=== PATIENT | female | born 1955 | race Caucasian/White ===

== ENCOUNTER 2020-05-05 20:25 | Inpatient (IN) ==
[2020-05-05] MEDS ORDERED: DUONEB 0.5 MG/3 MG (3 mL) NEB ONE ×2 (20:59→21:23)
[2020-05-05] MEDS ORDERED: SOLU-Medrol 125 MG VIAL IVP ONE (20:59)
--- NOTE | 2020-05-05 20:59 | DR.SOBA ---
HPI - Time Seen Time seen: 20:53 - Primary Care Physician Primary Care Physician: ROXANNE LEYVA - Complaints Chief Complaint Doctors Comments: Patient is complaining of SOB and problems breathing for the past 2-3 days getting worst tonight. She is a patient of Donya Leyva and states she is on oxygen at home but her concentrator is broken and she only use her oxygen at night but she is suppose to use it all day. EMS states patient's oxygen was 78% when they arrived and they put her on two liters and her oxygen came up to 96%. Patient is complaining of chest pain in the xiphoid area for the past two hours that is dull. She has taken an aspirin today but no nitriglycerin. She denies swelling of her legs or feet. She denies tobacco or alcohol usage. Chief Complaint:: PT IN ED VIA STRETCHER PER [facility] WITH C/O SOB. PER EMS PT WAS 78% ON ROOM AIR WHEN THEY ARRIVED AND INCREASED TO 97% ON 4 LITERS NC. - COVID-19 Coronavirus risk:travel/contact w/high risk person: No Has patient experienced Coronavirus symptoms: Yes Coronavirus symptoms experienced: Fever, Shortness of Breath - Source History Provided: Patient, EMS - Mode of Arrival Mode of Arrival: Stretcher - Timing Onset of Chief Complaint: 05/02/20 - Duration Duration: Days - Context Onset:: At Rest PE Risk Factors:: None History of:: COPD Currently on:: Inhaled Bronchodilators Prehospital Care:: O2, Inhaled B2 - Modifying Factors Worsens:: Exertion Improves:: Nothing - Associated Signs and Symptoms Associated Signs and Symptoms: Wheeze, Cough, Chest Pain - If Chest Pain Quality: Pressure like, Aching Location: Substernal - If Cough Cough: Nonproductive PMH - PMH Past Medical History: Yes Past Medical History: Asthma, COPD, Diabetes, Hypertension, Seizures Past Surgical History: Yes Surgical History: Cholecystectomy - Family History History of Family Medical Conditions: Yes Family Medical History: Diabetes Mellitus, Cancer, [place], Coronary Artery Disease, Heart Failure, Sudden Cardiac , Hypertension - Social History Does patient currently use any type of tobacco product: No Have you used tobacco products in the last 12 months: No Type of Tobacco Use: None Does any household member use tobacco: No Alcohol Use: None Do you use any recreational Drugs:: No Lives With: Family Lives Where: Home - Travel Risk Coronavirus risk:travel/contact w/high risk person: No Has patient experienced Coronavirus symptoms: Yes Coronavirus symptoms experienced: Fever, Shortness of Breath - infectious screening In the last 2 months have you had wt loss of >10#?: NO Have you had fever, night sweats or hemotysis?: No Have you traveled outside the country in the last 6 months?: No Isolation: Droplet PE - General Limitations: No Limitations General Appearance: Alert, In Distress (moderate) - Head Head Exam: Normal Inspection, Atraumatic, Normocephalic - Eyes Eye exam: Normal Appearance, PERRL, EOMI. negative: Scleral Icterus, Conjunctival Injection, Nystagmus, Miosis, Mydrasis, Periorbital Swelling, Periorbital Tenderness, Other - ENT ENT Exam: Normal Exam, Normal Oropharynx, Normal External Ear Exam, Mucous Me mbranes Moist, TM's Normal Bilaterally - Neck Neck Exam: Normal Inspection, Full ROM, Trachea Midline. negative: Tenderness, Meningismus, Lymphadenopathy, Thyromegaly, Other - Chest Chest Inspection: Normal Inspection, Symmetric Chest Wall Rise. negative: Tenderness, Rash, Abscess, Other - Respiratory Respiratory Exam: Normal Lung Sounds Bilat, Prolonged Expiratory Phase Respiratory Exam: Bilateral Wheezing, Bilateral Decreased Breath Sounds - Cardiovascular Cardiovascular Exam: Regular Rate, Normal Rhythm, Normal Heart Sounds - Abdominal Exam Abdominal Exam: Normal Inspection, Normal Bowel Sounds, Soft. negative: Distention, Tenderness, Guarding, Rebound, Rigidity, Dimnished Bowel Sounds, Hyperactive Bowel Sounds, Hypoactive Bowel Sounds, Organomegaly, Trauma, Incis ion, Ascites, Mass, Bruit, Pulsatile Mass, Hernia, Other Abdominal Tenderness: negative: RUQ, RLQ, LUQ, LLQ, Epigastrium, Suprapubic, Diffuse, Mild, Moderate, Severe, Other - Extremities Extremities Exam: Normal Inspection, Full ROM, Normal Capillary Refill. negative: Tenderness, Edema, Joint Swelling, Calf Tenderness, Other - Back Back Exam: Normal Inspection, Full ROM. negative: Tenderness, (R) CVA Tenderness, (L) CVA Tenderness, Muscle Spasm, Paraspinal Tenderness, Vertebral Tenderness, Rashes, (R) Sciatic Notch Tenderness, (L) Sciatic Notch Tendern, (R) Straight Leg Raise, (L) Straight Leg Raise, Other - Neurologic Neurological Exam: Alert, Oriented X3, CN II-XII Intact, Normal Gait, Reflexes Normal - Psychiatric Psychiatric Exam: Normal Affect, Normal Mood. negative: Depressed, Agitated, Anxious, Flat Affect, Manic, Homicidal Ideation, Suicidal Ideation, Other - Skin Skin Exam: Warm, Dry, Intact, Normal Color. negative: Rash, Cyanosis, Diaphoresis, Erythema, Pallor, Mottled, Other - Vital Signs Vitals: Temperature 100.1 F Pulse Rate 93 Respiratory Rate 28 Blood Pressure [Right Arm] 105/61 Blood Pressure 199/97 O2 Sat by Pulse Oximetry 99 ROR - Labs Reviewed Result Diagrams: 05/06/20 05:35 05/06/20 05:35 Opioid - Opioid Risk Tool Age (Michael box if 16-45): No History of Preadolescent Sexual Abuse: No Total: 0 Total Score Risk Category: Low Risk - Diagnosis Discharge Problem: COPD with acute exacerbation, Hypoxemia, Hyperglycemia, Microcytic anemia - Discharge Plan Disposition: ADMITTED INPATIENT Condition: Stable
[2020-05-05] MEDS ORDERED: ASPIRIN PO ONE (21:01)
[2020-05-05] MEDS ORDERED: NITROSTAT SL PRN (21:01)
[2020-05-05] MEDS ORDERED: SOLU-Medrol 125 MG VIAL ONE (21:04)
[2020-05-05] MEDS ORDERED: NITROSTAT ONE (21:04)
[2020-05-05] MEDS ORDERED: ASPIRIN ONE (21:04)
--- NOTE | 2020-05-05 21:27 | RAD ---
CHEST, 1 VIEWHistory: ACUTE SOB, FEVERComparison: 01/29/2017Findings: Cardiac silhouette is mildly enlarged without congestive failure. Lungs are mildly hyperinflated with coarsened interstitial markings, suggestive for COPD. No definite acute alveolar infiltrate or significant effusion is identified. No pneumothorax.Impression:Mild cardiomegaly and COPD without acute cardiopulmonary abnormality.Electronically signed by: RENATO DEWITT (May 05, 2020 21:25:48)
[2020-05-05 22:06] LABS: BASOPHILS % (AUTO) 0.5 % (0.2-1.0); EOSINOPHILS % (AUTO) 1.1 % (0.9-2.9); HEMATOCRIT 28.6 % (36.0-47.0); HEMOGLOBIN 9.3 g/dL (12.0-16.0); LYMPHOCYTES # (AUTO) 1.2 X10^3/uL (1.3-2.9); LYMPHOCYTES % (AUTO) 33.3 % (21.0-51.0); MEAN CORPUSCULAR HEMOGLOBIN 24.8 pg (27.0-34.0); MEAN CORPUSCULAR HGB CONC 32.7 g/dL (33.0-35.0); MEAN CORPUSCULAR VOLUME 75.8 fL (80.0-100.0); MEAN PLATELET VOLUME 6.2 fL (7.4-11.0); MONOCYTES # (AUTO) 0.1 x10^3/uL (0.3-0.8); MONOCYTES % (AUTO) 3.5 % (0.0-13.0); NEUTROPHILS # (AUTO) 2.2 x10^3/uL (2.2-4.8); NEUTROPHILS % (AUTO) 61.6 % (42.0-75.0); PLATELET COUNT 196 X10^3/uL (150.0-450.0); RED BLOOD COUNT 3.77 X10^6/uL (3.5-5.4); RED CELL DISTRIBUTION WIDTH 19.8 % (11.6-16.5); WHITE BLOOD COUNT 3.6 X10^3/uL (3.6-10.0)
[2020-05-05 22:14] LABS: PLATELET MORPHOLOGY COMMENT NORMAL (NORMAL)
[2020-05-05 22:18] LABS: BLOOD UREA NITROGEN 9 mg/dL (7-18); CALCIUM 7.8 mg/dL (8.5-10.1); CARBON DIOXIDE 37.9 mmol/L (21-32); CHLORIDE 100 mmol/L (98-107); CREATININE 0.84 mg/dL (0.55-1.02); SODIUM 140 mmol/L (136-145); TROPONIN I < 0.02 ng/mL (0-1.5); eGFR NON BLACK RACES > 60 (>60)
[2020-05-05 22:21] LABS: ALANINE AMINOTRANSFERASE 15 Units/L (12-78); ALBUMIN 2.6 g/dL (3.4-5.0); ALKALINE PHOSPHATASE 57 Units/L (46-116); ASPARTATE AMINO TRANSFERASE 19 Units/L (15-37); CKMB % 3.6 % (<4); COR CA(FOR HYPOALB) 8.9 mg/dL (8.5-10.1); CREATINE KINASE 28 Units/L (26-192); CREATINE KINASE MB < 1.0 ng/mL (0-4.0); MAGNESIUM 1.1 mg/dL (1.7-2.9); TOTAL PROTEIN 7.3 g/dL (6.4-8.2)
[2020-05-05] MEDS ORDERED: LEVAQUIN PREMIX IV 500 MG 500 MG/100 ML BAG IV ONE (23:29)
[2020-05-05] MEDS ORDERED: NS 1000 ML 1,000 ML ONE (23:29)
--- NOTE | 2020-05-05 23:35 | CT ---
STUDY: CTA CHEST WITH IV CONTRASTCOMPARISON: NoneTECHNIQUE: axial images were acquired of the chest with IV contrast for a CT angiogram. Coronal and sagittal images were provided. All images were reviewed in a variety of windows and levels. 3D 8 mm thick MIPS images were provided.RADIATION REDUCTION TECHNIQUE: Automated exposure control, Adjustment of the mA and/or kV according to patient size, or iterative reconstruction techniques were used. 8 mm thick axial MIPS images were provided.HISTORY: HYPOXEMIAFINDINGS:CHEST:THYROID GLANDS: The thyroid gland is unremarkable.HEART AND VESSELS: The heart size is within normal limits.There is no evidence of pericardial effusion. Thoracic aorta is normal size without evidence of an aneurysm or dissection.Main pulmonary artery size is within normal limits.Exam is markedly limited to due bolus timing. There is no evidence of a pulmonary embolism in the main pulmonary artery, right pulmonary artery, and left pulmonary artery. Distal emboli beyond these points can not be accurately assessed on this examination. Heavy calcified atheromatous plaque burden is noted in the [place] coronary vessel.LYMPH NODES: Bilateral hilar and mediastinal lymphadenopathy is seen. No evidence of axillary lymphadenopathy.AIRWAY: The trachea and mainstem bronchi are patent.No intraluminal lesions are seen.LUNGS: There are scattered areas of air trapping. There is pleural thickening in the bilateral lower lung zones which appears worse on the right compared to left. There is contour irregularity of the pleural surface predominantly seen in the bilat mid and right lower lung zone.ESOPHAGUS: The esophagus is grossly unremarkable.BONES: The visualized bones demonstrate degenerative changes. There are no concerning lytic or blastic lesions identified.UPPER ABDOMINAL STRUCTURES: The visualized upper abdominal structures demonstrates postoperative changes from cholecystectomy.IMPRESSSION:1. Exam is markedly limited to due bolus timing. There is no evidence of a pulmonary embolism in the main pulmonary artery, right pulmonary artery, and left pulmonary artery. Distal emboli beyond these points can not be accurately assessed on this examination.2. Heavy calcified atheromatous plaque burden is seen in the [place] coronary vessels3. There is bilateral hilar and mediastinal lymphadenopathy which may be infectious, inflammatory, or neoplastic in etiology4. Incidentally noted are scattered areas of air trapping which may represent small airways disease in the lungs.5. There is mild pleural thickening of the bilateral lower lung zones which appears worse on the right compared to left with contour irregularity along the subpleural surface of the bilateral mid and lower lung zones. There are no prior studies available for comparison to assess the stability of this finding. The etiology of this is not clear. Follow-up may be obtained as clinically indicated.6. Status post cholecystectomyElectronically signed by: Scott Payne (May 05, 2020 23:34:14)
[2020-05-05] MEDS ORDERED: LEVAQUIN PREMIX IV 500 MG 500 MG/100 ML BAG IV SCH (23:45)
[2020-05-06] MEDS: DUONEB 0.5 MG/3 MG (3 mL) NEB SCH ×6 (01:36→20:29)
[2020-05-06] MEDS ORDERED: POTASSIUM CHLORIDE LIQ 20 MEQ UDC PO PRN (02:28)
[2020-05-06] MEDS ORDERED: K-RIDER 10 MEQ/NS 100 ML 10 MEQ/100 ML BAG IV PRN (02:28)
[2020-05-06] MEDS ORDERED: POTASSIUM CHL 60 MEQ/NS 0.45% 500 ML IV PRN (02:28)
[2020-05-06] MEDS ORDERED: POTASSIUM CHL 40 MEQ/NS 0.45% 500 ML IV PRN (02:28)
[2020-05-06] MEDS ORDERED: KLOR-CON PO PRN (02:28)
[2020-05-06] MEDS ORDERED: MICRO K EXTEN CAP 10 MEQ PO PRN (02:28)
[2020-05-06] MEDS ORDERED: LEVAQUIN PREMIX IV 500 MG 500 MG/100 ML BAG IV SCH ×2 (03:00→23:00)
[2020-05-06] MEDS: K-DUR TAB 20 MEQ PO PRN ×2 (03:10→09:05)
[2020-05-06] MEDS: MAGNESIUM SULFATE 1 GRAM/100 mL PREMIX 1 GM/100 ML BAG IV PRN ×6 (03:10→13:56)
[2020-05-06] MEDS: HumuLIN R SUBCUT PRN ×3 (06:37→22:37)
[2020-05-06 06:42] LABS: BILIRUBIN,URINE NEGATIVE (NEGATIVE); BLOOD/HEMOGLOBIN,URINE 1+ (NEGATIVE); GLUCOSE, URINE NEGATIVE (NEGATIVE); KETONES,URINE NEGATIVE (NEGATIVE); LEUKOCYTE ESTERASE ,URINE 1+ (NEGATIVE); NITRITES,URINE NEGATIVE (NEGATIVE); PROTEIN,URINE 2+ (NEGATIVE); UROBILINOGEN,URINE 2+ (NORMAL)
[2020-05-06 06:55] LABS: BASOPHILS % (AUTO) 0.3 % (0.2-1.0); EOSINOPHILS % (AUTO) 0.1 % (0.9-2.9); HEMOGLOBIN 8.7 g/dL (12.0-16.0); LYMPHOCYTES # (AUTO) 0.3 X10^3/uL (1.3-2.9); LYMPHOCYTES % (AUTO) 10.5 % (21.0-51.0); MEAN CORPUSCULAR HEMOGLOBIN 24.9 pg (27.0-34.0); MEAN CORPUSCULAR HGB CONC 32.2 g/dL (33.0-35.0); MEAN CORPUSCULAR VOLUME 77.6 fL (80.0-100.0); MEAN PLATELET VOLUME 6.8 fL (7.4-11.0); MONOCYTES # (AUTO) 0 x10^3/uL (0.3-0.8); MONOCYTES % (AUTO) 1.2 % (0.0-13.0); NEUTROPHILS # (AUTO) 2.8 x10^3/uL (2.2-4.8); NEUTROPHILS % (AUTO) 87.9 % (42.0-75.0); PLATELET COUNT 211 X10^3/uL (150.0-450.0); RED BLOOD COUNT 3.49 X10^6/uL (3.5-5.4); RED CELL DISTRIBUTION WIDTH 19.4 % (11.6-16.5); WHITE BLOOD COUNT 3.2 X10^3/uL (3.6-10.0)
[2020-05-06 06:59] LABS: BLOOD UREA NITROGEN 9 mg/dL (7-18); CALCIUM 7.4 mg/dL (8.5-10.1); CARBON DIOXIDE 35.8 mmol/L (21-32); CHLORIDE 99 mmol/L (98-107); COR NA(FOR HYPERGLY) 141 mmol/L (136-145); CREATININE 0.81 mg/dL (0.55-1.02); SODIUM 137 mmol/L (136-145); eGFR NON BLACK RACES > 60 (>60)
[2020-05-06 07:00] LABS: APPEARANCE,URINE CLEAR (CLEAR); COLOR,URINE DARK YELLOW (YELLOW)
[2020-05-06 07:01] LABS: BACTERIA,URINE TRACE /HPF (NEGATIVE); SQUAMOUS EPITHELIAL CELL,UR FEW /HPF (NEGATIVE)
[2020-05-06 07:08] LABS: HYPOCHROMASIA SLIGHT; PLATELET MORPHOLOGY COMMENT NORMAL (NORMAL)
[2020-05-06 07:09] LABS: ANISOCYTOSIS SLIGHT; MICROCYTOSIS SLIGHT
[2020-05-06] MEDS ORDERED: SOLU-Medrol 40 MG VIAL IVP SCH (09:00)
[2020-05-06] MEDS: ISOSORBIDE DINITRATE PO SCH ×2 (09:25→20:42)
[2020-05-06] MEDS: PROTONIX TAB 40 MG PO SCH (09:26)
[2020-05-06] MEDS: APRESOLINE TAB 25 MG PO SCH ×2 (09:26→20:41)
[2020-05-06] MEDS: ZESTRIL TAB 40 MG PO SCH ×2 (09:26→20:42)
[2020-05-06] MEDS: LASIX PO SCH (09:26)
[2020-05-06] MEDS: LIPITOR TAB 40 MG PO SCH (09:26)
[2020-05-06] MEDS: LOPRESSOR TAB 50 MG PO SCH ×2 (09:26→20:41)
[2020-05-06] MEDS: SOLU-Medrol 125 MG VIAL IVP SCH ×3 (09:27→22:39)
[2020-05-06 10:23] VITALS: BMI 33.9
--- NOTE | 2020-05-06 11:18 | DR.H&P ---
H&P History & Physical for Day of: H&P Date: 05/06/20 Chief Complaint Chief Complaint: worsening SOB Allergies Allergies Allergy/AdvReac Type Severity Reaction Status Date / Time ceftriaxone [From Rocephin] Allergy Verified 05/06/20 00:29 hydromorphone [From Dilaudid] Allergy Verified 05/05/20 20:46 theophylline Allergy Verified 05/06/20 00:29 History of Present Illness History of Present Illness: Ms. Dennis is a 65y/o female with a PMH of Asthma/COPD presented with worsening SOB. She uses chronic oxygen at home 3L at bedtime but has been using it 24 hrs in the past week. She also states her portable oxygen has not been working properly. She denies fever or chills. Denies cough. She has been using albuterol and duonebs more lately. She has a hx of CAD s/p PCI, last stents in 2018. Patient is currently on 3L oxygen via [place]. ED work-up: - COVID-19 negative, elevated d-dimer Trop (-) - CTA: neg for PE, b/l hilar and mediastinal LAD, pleural thickening and air trapping - Received levaquin, solumedrol and duonebs Plan: will switch to Zithromax, continue solumedrol, duonebs and pulmicort prn. Resume home medications. Monitor AM labs. SSI Past Medical History Past Medical History: Asthma, COPD, Diabetes, Hypertension and Seizures Past Surgical History Surgical History: Angioplasty/Stents, Cholecystectomy, Lithotripsy and Other Family History Family Medical History: Diabetes Mellitus, Cancer, [place], Coronary Artery Disease, Sudden Cardiac and Hypertension Social History Does patient currently use any type of tobacco product: No Have you used tobacco products in the last 12 months: No Type of Tobacco Use: None How many years tobacco product used: 27 Does any household member use tobacco: No Alcohol Use: None Drug Use: None Medications Home Medications: ceftriaxone [From Rocephin] Allergy (Verified 05/06/20 00:29) hydromorphone [From Dilaudid] Allergy (Verified 05/05/20 20:46) theophylline Allergy (Verified 05/06/20 00:29) CONTINUE taking the following medications albuterol sulfate [ProAir HFA] 2 puff INHALATION Q6H PRN 05/05/20 [History] atorvastatin 40 mg PO DAILY 05/05/20 [History] furosemide [Lasix] 40 mg PO QAM 05/05/20 [History] glipizide 5 mg PO BID 05/05/20 [History] hydralazine 50 mg PO BID 05/05/20 [History] isosorbide dinitrate 10 mg PO BID 05/05/20 [History] lisinopril 40 mg PO BID 05/05/20 [History] metoprolol tartrate 50 mg PO BID 05/05/20 [History] pantoprazole 40 mg PO QAM 05/05/20 [History] Labs Result Diagrams: 05/06/20 05:35 05/06/20 05:35 Labs: Laboratory WBC 3.2 X10^3/uL (3.6-10.0) L 05/06/20 05:35 RBC 3.49 X10^6/uL (3.5-5.4) L 05/06/20 05:35 Hgb 8.7 g/dL (12.0-16.0) L 05/06/20 05:35 Hct 27.0 % (36.0-47.0) L 05/06/20 05:35 MCV 77.6 fL (80.0-100.0) L 05/06/20 05:35 MCH 24.9 pg (27.0-34.0) L 05/06/20 05:35 MCHC 32.2 g/dL (33.0-35.0) L 05/06/20 05:35 RDW 19.4 % (11.6-16.5) H 05/06/20 05:35 Plt Count 211 X10^3/uL (150.0-450.0) 05/06/20 05:35 Plt Count Comment Adequate (ADEQUATE) 05/06/20 05:35 MPV 6.8 fL (7.4-11.0) L 05/06/20 05:35 Neut % (Auto) 87.9 % (42.0-75.0) H 05/06/20 05:35 Lymph % (Auto) 10.5 % (21.0-51.0) L 05/06/20 05:35 [place] % (Auto) 1.2 % (0.0-13.0) 05/06/20 05:35 Eos % (Auto) 0.1 % (0.9-2.9) L 05/06/20 05:35 Baso % (Auto) 0.3 % (0.2-1.0) 05/06/20 05:35 Neut # (Auto) 2.8 x10^3/uL (2.2-4.8) 05/06/20 05:35 Lymph # (Auto) 0.3 X10^3/uL (1.3-2.9) L 05/06/20 05:35 [place] # (Auto) 0 x10^3/uL (0.3-0.8) L 05/06/20 05:35 Eos # (Auto) 0.0 x10^3/uL (0.0-0.2) 05/06/20 05:35 Baso # (Auto) 0.0 X10^3/uL (0.0-0.1) 05/06/20 05:35 Absolute Nucleated RBC 0.1 /100WBC 05/06/20 05:35 Plt Morphology Comment Normal (NORMAL) 05/06/20 05:35 RBC Morphology Abnormal (NORMAL) A 05/06/20 05:35 Hypochromasia Slight A 05/06/20 05:35 Anisocytosis Slight A 05/06/20 05:35 Microcytosis Slight A 05/06/20 05:35 PT 13.3 SECONDS (11.8-14.3) 05/05/20 21:35 INR Target Range - 05/05/20 21:35 INR 1.04 (0.8-1.3) 05/05/20 21:35 APTT 32.0 SECONDS (22.9-36.5) 05/05/20 21:35 PTT Comment - 05/05/20 21:35 D-Dimer 2880 ng/mL (0-400) H* 05/05/20 21:45 Sodium 137 mmol/L (136-145) 05/06/20 05:35 Corrected Sodium 141 mmol/L (136-145) 05/06/20 05:35 Potassium 3.6 mmol/L (3.5-5.1) 05/06/20 05:35 Chloride 99 mmol/L (98-107) 05/06/20 05:35 Carbon Dioxide 35.8 mmol/L (21-32) H 05/06/20 05:35 BUN 9 mg/dL (7-18) 05/06/20 05:35 Creatinine 0.81 mg/dL (0.55-1.02) 05/06/20 05:35 Est GFR (MDRD) Af Amer > 60 (>60) 05/06/20 05:35 Est GFR (MDRD) Non-Af > 60 (>60) 05/06/20 05:35 Glucose 251 mg/dL (65-99) H 05/06/20 05:35 POC Glucose (mg/dL) 232 mg/dL (65-99) H 05/06/20 05:46 Calcium 7.4 mg/dL (8.5-10.1) L 05/06/20 05:35 Corrected Calcium 8.9 mg/dL (8.5-10.1) 05/05/20 21:45 Magnesium 1.1 mg/dL (1.7-2.9) L 05/05/20 21:45 Total Bilirubin 0.70 mg/dL (0.2-1.0) 05/05/20 21:45 AST 19 Units/L (15-37) 05/05/20 21:45 ALT 15 Units/L (12-78) 05/05/20 21:45 Alkaline Phosphatase 57 Units/L (46-116) 05/05/20 21:45 Creatine Kinase 28 Units/L (26-192) 05/05/20 21:45 CK-MB (CK-2) < 1.0 ng/mL (0-4.0) 05/05/20 21:45 CK/CKMB % Calc 3.6 % (<4) 05/05/20 21:45 Troponin I < 0.02 ng/mL (0-1.5) 05/05/20 21:45 B-Natriuretic Peptide 25.2 pg/mL (0-79) 05/05/20 21:45 Total Protein 7.3 g/dL (6.4-8.2) 05/05/20 21:45 Albumin 2.6 g/dL (3.4-5.0) L 05/05/20 21:45 Globulin 4.7 g/dL (2.5-4.5) H 05/05/20 21:45 Albumin/Globulin Ratio 0.6 Ratio (1.1-2.1) L 05/05/20 21:45 Specimen Type Clean catch urine 05/06/20 06:20 Urine Color Dark yellow (YELLOW) 05/06/20 06:20 Urine Appearance Clear (CLEAR) 05/06/20 06:20 Urine pH 6.0 (5.0 - 8.0) 05/06/20 06:20 Ur Specific [place] 1.010 (1.000-1.030) 05/06/20 06:20 Urine Protein 2+ (NEGATIVE) 05/06/20 06:20 Urine Glucose (UA) Negative (NEGATIVE) 05/06/20 06:20 Urine Ketones Negative (NEGATIVE) 05/06/20 06:20 Urine Occult Blood 1+ (NEGATIVE) 05/06/20 06:20 Urine Nitrite Negative (NEGATIVE) 05/06/20 06:20 Urine Bilirubin Negative (NEGATIVE) 05/06/20 06:20 Urine Urobilinogen 2+ (NORMAL) 05/06/20 06:20 Ur Leukocyte Esterase 1+ (NEGATIVE) 05/06/20 06:20 Urine RBC 3-5 /HPF (0-3) A 05/06/20 06:20 Urine WBC 5-10 /HPF (0-5) A 05/06/20 06:20 Ur Squamous Epith Cells Few /HPF (NEGATIVE) 05/06/20 06:20 Urine Bacteria Trace /HPF (NEGATIVE) 05/06/20 06:20 Ur Culture Indicated? No/not indicated 05/06/20 06:20 SARS-CoV-2 (PCR) Negative (NEGATIVE) 05/05/20 23:15 Review of Systems Constitutional: Weakness; denies Fever and Chills Eyes: No Symptoms Reported ENT: No Symptoms Reported Respiratory: Shortness of Breath, SOB with Excertion and Wheezing Cardiovascular: No Symptoms Reported Gastrointestinal: No Symptoms Reported Genitourinary: No Symptoms Reported Musculoskeletal: No Symptoms Reported Skin: No Symptoms Reported Neurological: No Symptoms Reported Physical Exam Vital Signs: Temperature 97.6 F Pulse Rate [Right Radial] 76 Pulse Rate 84 Respiratory Rate 18 Blood Pressure [Right Arm] 131/61 Blood Pressure 159/77 O2 Sat by Pulse Oximetry 96 Oriented: Normal Eyes: Normal Ear: Normal Nose: Normal Throat: Normal Respiratory: Diminished Throughout Cardiovascular: Normal Auscultation: Bowel Sounds: Normal Palpation: Normal Tenderness: Normal Skin: Normal Musculoskeletal: Normal Psychiatric: Normal Mood Description: Calm Affect: Normal Speech Pattern: Clear and Appropriate Assessment/Plan (1) COPD exacerbation: Status: Acute (2) CAD (coronary artery disease): Qualifiers: Associated angina: without angina Coronary Disease-Associated Artery/Lesion type: unspecified vessel or lesion type [place] vs. transplanted heart: [place] heart Qualified Code(s): I25.10 - Atherosclerotic heart disease of [place] coronary artery without angina pectoris Status: Acute (3) Diabetes: Qualifiers: Diabetes mellitus complication status: without complication Diabetes mellitus vermin exterminator insulin use: without fci use Diabetes mellitus type: type 2 Qualified Code(s): E11.9 - Type 2 diabetes mellitus without complications Status: Acute (4) Anemia: Qualifiers: Anemia type: unspecified type Qualified Code(s): D64.9 - Anemia, unspecified Status: Acute (5) Hilar lymphadenopathy: Status: Acute (6) HTN (hypertension): Status: Acute Review H&P Reviewed: Yes Patient was examined?: Yes
[2020-05-06] MEDS: ZITHROMAX TAB 250 MG PO SCH (12:00)
[2020-05-06] MEDS: PULMICORT NEB TX 0.5 MG NEB SCH ×2 (13:57→20:29)
[2020-05-06] MEDS: SNACK - Diabetic Appropriate PO SCH (20:53)
[2020-05-07] MEDS: DUONEB 0.5 MG/3 MG (3 mL) NEB SCH ×6 (00:18→20:15)
[2020-05-07] MEDS: SOLU-Medrol 125 MG VIAL IVP SCH (05:38)
[2020-05-07 06:32] LABS: BASOPHILS % (AUTO) 0.1 % (0.2-1.0); HEMATOCRIT 26.8 % (36.0-47.0); HEMOGLOBIN 8.7 g/dL (12.0-16.0); LYMPHOCYTES # (AUTO) 0.5 X10^3/uL (1.3-2.9); LYMPHOCYTES % (AUTO) 13.8 % (21.0-51.0); MEAN CORPUSCULAR HGB CONC 32.3 g/dL (33.0-35.0); MEAN CORPUSCULAR VOLUME 77.4 fL (80.0-100.0); MEAN PLATELET VOLUME 6.5 fL (7.4-11.0); MONOCYTES # (AUTO) 0.2 x10^3/uL (0.3-0.8); MONOCYTES % (AUTO) 5.9 % (0.0-13.0); NEUTROPHILS # (AUTO) 3.1 x10^3/uL (2.2-4.8); NEUTROPHILS % (AUTO) 80.2 % (42.0-75.0); PLATELET COUNT 223 X10^3/uL (150.0-450.0); RED BLOOD COUNT 3.46 X10^6/uL (3.5-5.4); RED CELL DISTRIBUTION WIDTH 19.6 % (11.6-16.5); WHITE BLOOD COUNT 3.9 X10^3/uL (3.6-10.0)
[2020-05-07 06:41] LABS: BLOOD UREA NITROGEN 11 mg/dL (7-18); CALCIUM 7.9 mg/dL (8.5-10.1); CARBON DIOXIDE 35.1 mmol/L (21-32); CHLORIDE 102 mmol/L (98-107); COR NA(FOR HYPERGLY) 141 mmol/L (136-145); MAGNESIUM 2.4 mg/dL (1.7-2.9); SODIUM 139 mmol/L (136-145); eGFR NON BLACK RACES > 60 (>60)
[2020-05-07 06:49] LABS: PLATELET MORPHOLOGY COMMENT NORMAL (NORMAL)
[2020-05-07 06:50] LABS: ANISOCYTOSIS SLIGHT; HYPOCHROMASIA SLIGHT; MICROCYTOSIS SLIGHT
[2020-05-07] MEDS: ZITHROMAX TAB 250 MG PO SCH (08:33)
[2020-05-07] MEDS: LIPITOR TAB 40 MG PO SCH (08:33)
[2020-05-07] MEDS: ZESTRIL TAB 40 MG PO SCH ×2 (08:33→20:48)
[2020-05-07] MEDS: PROTONIX TAB 40 MG PO SCH (08:33)
[2020-05-07] MEDS: LASIX PO SCH (08:33)
[2020-05-07] MEDS: LOPRESSOR TAB 50 MG PO SCH ×2 (08:33→20:47)
[2020-05-07] MEDS: ISOSORBIDE DINITRATE PO SCH ×2 (08:33→20:47)
[2020-05-07] MEDS: APRESOLINE TAB 25 MG PO SCH ×2 (08:33→20:47)
[2020-05-07] MEDS: PULMICORT NEB TX 0.5 MG NEB SCH ×2 (09:23→20:15)
--- NOTE | 2020-05-07 10:22 | PCM.PROG ---
Progress Note Progress Note for Day of Date of Exam: 05/07/20 Subjective Subjective: Patient seen at bedside, no overnight events. She is currently on 3L which is her home oxygen. She states her breathing is a lot better and she feels good overall. She has been ambulating in the room. Denies N/V or abdominal pain. Plan: will continue antibiotics and steroids, duonebs and pulmicort prn. RT to do walk test. CM consult for home oxygen set up. Plan to discharge likely lamberto husain. Past Medical Family Social History Past Med/Fam/Surg Hx: No changes since H&P Allergies: Allergies ceftriaxone [From Rocephin] Allergy (Verified 05/06/20 00:29) hydromorphone [From Dilaudid] Allergy (Verified 05/05/20 20:46) theophylline Allergy (Verified 05/06/20 00:29) Review of Systems ROS: No change since H&P Vital Signs and I&O's Vital Signs: Temperature 97.9 F Pulse Rate [Right Radial] 69 Pulse Rate 78 Respiratory Rate 18 Blood Pressure [Right Arm] 155/71 Blood Pressure 159/77 O2 Sat by Pulse Oximetry 95 Intake and Output: Intake & Output 05/04/20 05/05/20 05/06/20 05/07/20 23:59 23:59 23:59 23:59 Intake Total 2311 210 / 210 Balance 2311 210 / 210 Physical Exam Oriented: Normal Eyes: Normal Ear: Normal Nose: Normal Throat: Normal Respiratory: Diminished (improved ) Cardiovascular: Normal Auscultation: Bowel Sounds: Normal Tenderness: Normal Skin: Normal Musculoskeletal: Normal Psychiatric: Normal Mood Description: Calm Affect: Normal Speech Pattern: Clear and Appropriate Laboratory and Diagnostics Result Diagrams: 05/07/20 05:28 05/07/20 05:28 Labs: 05/05/20 21:45 Blood Blood Culture - Preliminary 05/05/20 21:35 Blood Blood Culture - Preliminary Laboratory WBC 3.9 X10^3/uL (3.6-10.0) 05/07/20 05:28 RBC 3.46 X10^6/uL (3.5-5.4) L 05/07/20 05:28 Hgb 8.7 g/dL (12.0-16.0) L 05/07/20 05:28 Hct 26.8 % (36.0-47.0) L 05/07/20 05:28 MCV 77.4 fL (80.0-100.0) L 05/07/20 05:28 MCH 25.0 pg (27.0-34.0) L 05/07/20 05:28 MCHC 32.3 g/dL (33.0-35.0) L 05/07/20 05:28 RDW 19.6 % (11.6-16.5) H 05/07/20 05:28 Plt Count 223 X10^3/uL (150.0-450.0) 05/07/20 05:28 Plt Count Comment Adequate (ADEQUATE) 05/07/20 05:28 MPV 6.5 fL (7.4-11.0) L 05/07/20 05:28 Neut % (Auto) 80.2 % (42.0-75.0) H 05/07/20 05:28 Lymph % (Auto) 13.8 % (21.0-51.0) L 05/07/20 05:28 [place] % (Auto) 5.9 % (0.0-13.0) 05/07/20 05:28 Eos % (Auto) 0.0 % (0.9-2.9) L 05/07/20 05: Baso % (Auto) 0.1 % (0.2-1.0) L 05/07/20 05:28 Neut # (Auto) 3.1 x10^3/uL (2.2-4.8) 05/07/20 05:28 Lymph # (Auto) 0.5 X10^3/uL (1.3-2.9) L 05/07/20 05:28 [place] # (Auto) 0.2 x10^3/uL (0.3-0.8) L 05/07/20 05:28 Eos # (Auto) 0.0 x10^3/uL (0.0-0.2) 05/07/20 05:28 Baso # (Auto) 0.0 X10^3/uL (0.0-0.1) 05/07/20 05:28 Absolute Nucleated RBC 0.1 /100WBC 05/07/20 05:28 Plt Morphology Comment Normal (NORMAL) 06/07/20 05:28 RBC Morphology Abnormal (NORMAL) A 05/07/20 05:28 Hypochromasia Slight A 05/07/20 05:28 Anisocytosis Slight A 05/07/20 05:28 Microcytosis Slight A 05/07/20 05:28 PT 13.3 SECONDS (11.8-14.3) 05/05/20 21:35 INR Target Range - 05/05/20 21:35 INR 1.04 (0.8-1.3) 05/05/20 21:35 APTT 32.0 SECONDS (22.9-36.5) 05/05/20 21:35 PTT Comment - 05/05/20 21:35 D-Dimer 2880 ng/mL (0-400) H* 05/05/20 21:45 Sodium 139 mmol/L (136-145) 05/07/20 05:28 Corrected Sodium 141 mmol/L (136-145) 05/07/20 05:28 Potassium 4.4 mmol/L (3.5-5.1) 05/07/20 05:28 Chloride 102 mmol/L (98-107) 05/07/20 05:28 Carbon Dioxide 35.1 mmol/L (21-32) H 05/07/20 05:28 BUN 11 mg/dL (7-18) 05/07/20 05:28 Creatinine 0.70 mg/dL (0.55-1.02) 05/07/20 05:28 Est GFR (MDRD) Af Amer > 60 (>60) 05/07/20 05:28 Est GFR (MDRD) Non-Af > 60 (>60) 05/07/20 05:28 Glucose 190 mg/dL (65-99) H 05/07/20 05:28 POC Glucose (mg/dL) 180 mg/dL (65-99) H 05/07/20 05:27 Calcium 7.9 mg/dL (8.5-10.1) L 05/07/20 05:28 Corrected Calcium 8.9 mg/dL (8.5-10.1) 05/05/20 21:45 Magnesium 2.4 mg/dL (1.7-2.9) 05/07/20 05:28 Iron 19 ug/dL (50-175) L 06/06/20 05:35 Transferrin 161 mg/dL (202-364) L 05/06/20 05:35 Ferritin 79 ng/mL (8-252) 05/06/20 05:35 Total Bilirubin 0.70 mg/dL (0.2-1.0) 05/05/20 21:45 AST 19 Units/L (15-37) 05/05/20 21:45 ALT 15 Units/L (12-78) 05/05/20 21:45 Alkaline Phosphatase 57 Units/L (46-116) 05/05/20 21:45 Creatine Kinase 28 Units/L (26-192) 05/05/20 21:45 CK-MB (CK-2) < 1.0 ng/mL (0-4.0) 05/05/20 21:45 CK/CKMB % Calc 3.6 % (<4) 05/05/20 21:45 Troponin I < 0.02 ng/mL (0-1.5) 05/05/20 21:45 B-Natriuretic Peptide 25.2 pg/mL (0-79) 05/05/20 21:45 Total Protein 7.3 g/dL (6.4-8.2) 05/05/20 21:45 Albumin 2.6 g/dL (3.4-5.0) L 05/05/20 21:45 Globulin 4.7 g/dL (2.5-4.5) H 05/05/20 21:45 Albumin/Globulin Ratio 0.6 Ratio (1.1-2.1) L 05/05/20 21:45 Vitamin B12 914 pg/mL (193-986) 05/06/20 05:35 Folate 6.0 ng/mL (>8.6) L 05/06/20 05:35 Specimen Type Clean catch urine 05/06/20 06:20 Urine Color Dark yellow (YELLOW) 05/06/20 06:20 Urine Appearance Clear (CLEAR) 05/06/20 06:20 Urine pH 6.0 (5.0 - 8.0) 05/06/20 06:20 Ur Specific [place] 1.010 (1.000-1.030) 05/06/20 06:20 Urine Protein 2+ (NEGATIVE) 05/06/20 06:20 Urine Glucose (UA) Negative (NEGATIVE) 05/06/20 06:20 Urine Ketones Negative (NEGATIVE) 05/06/20 06:20 Urine Occult Blood 1+ (NEGATIVE) 05/06/20 06:20 Urine Nitrite Negative (NEGATIVE) 05/06/20 06:20 Urine Bilirubin Negative (NEGATIVE) 05/06/20 06:20 Urine Urobilinogen 2+ (NORMAL) 05/06/20 06:20 Ur Leukocyte Esterase 1+ (NEGATIVE) 05/06/20 06:20 Urine RBC 3-5 /HPF (0-3) A 05/06/20 06:20 Urine WBC 5-10 /HPF (0-5) A 05/06/20 06:20 Ur Squamous Epith Cells Few /HPF (NEGATIVE) 05/06/20 06:20 Urine Bacteria Trace /HPF (NEGATIVE) 05/06/20 06:20 Ur Culture Indicated? No/not indicated 05/06/20 06:20 SARS-CoV-2 (PCR) Negative (NEGATIVE) 05/05/20 23:15 Plan (1) COPD exacerbation: Status: Acute (2) CAD (coronary artery disease): Status: Acute Qualifiers: Associated angina: without angina Coronary Disease-Associated Artery/Lesion type: unspecified vessel or lesion type [place] vs. transplanted heart: [place] heart Qualified Code(s): I25.10 - Atherosclerotic heart disease of [place] coronary artery without angina pectoris (3) Diabetes: Status: Acute Qualifiers: Diabetes mellitus complication status: without complication Diabetes mellitus chcf insulin use: without buttermaker use Diabetes mellitus type: type 2 Qualified Code(s): E11.9 - Type 2 diabetes mellitus without complications (4) Anemia: Status: Acute Qualifiers: Anemia type: unspecified type Qualified Code(s): D64.9 - Anemia, unspecified (5) [place] lymphadenopathy: Status: Acute (6) HTN (hypertension): Status: Acute Qualifiers: Hypertension type: essential hypertension Qualified Code(s): I10 - Essential (primary) hypertension
[2020-05-07] MEDS: PREDNISONE TAB 20 MG PO SCH (12:05)
[2020-05-07] MEDS: HumuLIN R SUBCUT PRN ×2 (14:54→17:10)
[2020-05-07] MEDS: SNACK - Diabetic Appropriate PO SCH (20:48)
[2020-05-08] MEDS: DUONEB 0.5 MG/3 MG (3 mL) NEB SCH ×3 (00:40→08:20)
[2020-05-08 06:22] LABS: BASOPHILS % (AUTO) 0.1 % (0.2-1.0); EOSINOPHILS % (AUTO) 0.1 % (0.9-2.9); HEMATOCRIT 25.6 % (36.0-47.0); HEMOGLOBIN 8.2 g/dL (12.0-16.0); LYMPHOCYTES # (AUTO) 1.1 X10^3/uL (1.3-2.9); LYMPHOCYTES % (AUTO) 19.6 % (21.0-51.0); MEAN CORPUSCULAR HGB CONC 32.1 g/dL (33.0-35.0); MEAN CORPUSCULAR VOLUME 77.9 fL (80.0-100.0); MEAN PLATELET VOLUME 6.5 fL (7.4-11.0); MONOCYTES # (AUTO) 0.4 x10^3/uL (0.3-0.8); NEUTROPHILS % (AUTO) 73.2 % (42.0-75.0); PLATELET COUNT 252 X10^3/uL (150.0-450.0); RED BLOOD COUNT 3.29 X10^6/uL (3.5-5.4); RED CELL DISTRIBUTION WIDTH 19.7 % (11.6-16.5); WHITE BLOOD COUNT 5.4 X10^3/uL (3.6-10.0)
[2020-05-08 06:32] LABS: BLOOD UREA NITROGEN 15 mg/dL (7-18); CALCIUM 7.9 mg/dL (8.5-10.1); CARBON DIOXIDE 35.5 mmol/L (21-32); CHLORIDE 103 mmol/L (98-107); COR NA(FOR HYPERGLY) 141 mmol/L (136-145); CREATININE 0.68 mg/dL (0.55-1.02); SODIUM 140 mmol/L (136-145); eGFR NON BLACK RACES > 60 (>60)
[2020-05-08 07:18] LABS: HYPOCHROMASIA SLIGHT; PLATELET MORPHOLOGY COMMENT NORMAL (NORMAL)
[2020-05-08] MEDS: PROTONIX TAB 40 MG PO SCH (08:13)
[2020-05-08] MEDS: LASIX PO SCH (08:13)
[2020-05-08] MEDS: ISOSORBIDE DINITRATE PO SCH (08:13)
[2020-05-08] MEDS: ZESTRIL TAB 40 MG PO SCH (08:13)
[2020-05-08] MEDS: PREDNISONE TAB 20 MG PO SCH (08:14)
[2020-05-08] MEDS: LOPRESSOR TAB 50 MG PO SCH (08:14)
[2020-05-08] MEDS: APRESOLINE TAB 25 MG PO SCH (08:14)
[2020-05-08] MEDS: LIPITOR TAB 40 MG PO SCH (08:14)
[2020-05-08] MEDS: ZITHROMAX TAB 250 MG PO SCH (08:15)
[2020-05-08] MEDS: PULMICORT NEB TX 0.5 MG NEB SCH (08:20)
--- NOTE | 2020-05-08 10:15 | W.DIS.FURT ---
Summary of Discharge Discharge Summary of Date Date of Exam: 05/08/20 Admission Date Date of Admission: 05/05/20 Admission Diagnosis Hospital Course: Ms. Dennis is a 65y/o female with a PMH of Asthma/COPD presented with worsening SOB. She uses chronic oxygen at home 3L at bedtime but has been using it 24 hrs in the past week. She also states her portable oxygen has not been working properly. She denies fever or chills. Denies cough. She has been using albuterol and duonebs more lately. She has a hx of CAD s/p PCI, last stents in 2018. Patient is currently on [facility] via [facility]. ED work-up showed COVID-19 negative, elevated d-dimer Trop (-). CTA was done which was neg for PE, b/l hilar and mediastinal LAD, pleural thickening and air trapping. She received levaquin, solumedrol and duonebs. She was being treated for COPD exacerbation. She was switched to azithromycin. Her breathing improved and she continued to remain on her home 3L oxygen. PT and RT were consulted. Home oxygen was set up via a new company. Patient was stable for discharge on oral antibiotics and prednisone. She will follow up with PCP in 1 week. Vital Signs: Vital Signs (72 hours) 05/05/20 20:37 05/05/20 21:01 05/05/20 21:10 Temperature 100.1 F H Pulse Rate 93 H 81 Pulse Rate [Right Radial] Respiratory Rate 28 H 28 H Blood Pressure 199/97 Blood Pressure [Right Arm] O2 Sat by Pulse Oximetry 99 100 05/05/20 21:15 05/05/20 21:30 05/05/20 21:31 Temperature Pulse Rate 92 H 83 77 Pulse Rate [Right Radial] Respiratory Rate Blood Pressure 179/77 Blood Pressure [Right Arm] O2 Sat by Pulse Oximetry 98 100 100 05/05/20 21:45 05/05/20 22:00 05/05/20 22:01 Temperature Pulse Rate 79 88 88 Pulse Rate [Right Radial] Respiratory Rate Blood Pressure 151/68 Blood Pressure [Right Arm] O2 Sat by Pulse Oximetry 100 81 L 80 L 05/05/20 22:15 05/05/20 22:30 05/05/20 22:45 Temperature Pulse Rate 82 80 Pulse Rate [Right Radial] Respiratory Rate Blood Pressure 166/75 Blood Pressure [Right Arm] O2 Sat by Pulse Oximetry 97 97 98 05/05/20 23:00 05/05/20 23:01 05/05/20 23:15 Temperature Pulse Rate 94 H 96 H 91 H Pulse Rate [Right Radial] Respiratory Rate Blood Pressure 158/68 Blood Pressure [Right Arm] O2 Sat by Pulse Oximetry 94 L 95 95 05/05/20 23:30 05/05/20 23:31 05/05/20 23:45 Temperature Pulse Rate 79 81 76 Pulse Rate [Right Radial] Respiratory Rate Blood Pressure 153/70 Blood Pressure [Right Arm] O2 Sat by Pulse Oximetry 93 L 92 L 92 L 05/06/20 00:00 05/06/20 00:01 05/06/20 00:15 Temperature Pulse Rate 81 75 74 Pulse Rate [Right Radial] Respiratory Rate Blood Pressure 169/77 Blood Pressure [Right Arm] O2 Sat by Pulse Oximetry 93 L 93 L 94 L 05/06/20 00:30 05/06/20 00:31 05/06/20 00:45 Temperature Pulse Rate 73 75 72 Pulse Rate [Right Radial] Respiratory Rate Blood Pressure 170/65 Blood Pressure [Right Arm] O2 Sat by Pulse Oximetry 96 96 96 05/06/20 01:00 05/06/20 01:01 05/06/20 01:15 Temperature Pulse Rate 72 72 75 Pulse Rate [Right Radial] Respiratory Rate Blood Pressure 159/77 Blood Pressure [Right Arm] O2 Sat by Pulse Oximetry 96 96 97 05/06/20 01:16 05/06/20 01:25 05/06/20 01:36 Temperature 97.2 F L 97.7 F Pulse Rate 85 Pulse Rate [Right Radial] 80 Respiratory Rate 20 Blood Pressure Blood Pressure [Right Arm] 153/67 O2 Sat by Pulse Oximetry 97 99 05/06/20 04:00 05/06/20 05:20 05/06/20 08:00 Temperature 97.6 F 97.6 F Pulse Rate 80 Pulse Rate [Right Radial] 79 76 Respiratory Rate 20 18 Blood Pressure Blood Pressure [Right Arm] 135/60 131/61 O2 Sat by Pulse Oximetry 94 L 97 98 05/06/20 08:41 05/06/20 12:00 05/06/20 16:00 Temperature 98.6 F 98.3 F Pulse Rate 84 Pulse Rate [Right Radial] 67 72 Respiratory Rate 18 20 Blood Pressure Blood Pressure [Right Arm] 132/65 138/65 O2 Sat by Pulse Oximetry 96 96 96 05/06/20 20:00 05/06/20 20:30 05/07/20 00:00 Temperature 98.7 F 98.9 F Pulse Rate 74 Pulse Rate [Right Radial] 73 72 Respiratory Rate 19 21 Blood Pressure Blood Pressure [Right Arm] 135/70 118/56 O2 Sat by Pulse Oximetry 94 L 95 98 05/07/20 00:18 05/07/20 04:00 05/07/20 04:23 Temperature 97.5 F L Pulse Rate 70 69 Pulse Rate [Right Radial] 69 Respiratory Rate 20 Blood Pressure Blood Pressure [Right Arm] 141/64 O2 Sat by Pulse Oximetry 98 99 99 05/07/20 08:00 05/07/20 09:23 05/07/20 10:15 Temperature 97.9 F Pulse Rate 78 78 Pulse Rate [Right Radial] 69 Respiratory Rate 18 Blood Pressure 159/77 Blood Pressure [Right Arm] 155/71 O2 Sat by Pulse Oximetry 97 95 95 05/07/20 12:00 05/07/20 16:00 05/07/20 20:00 Temperature 97.5 F L 97.9 F 98.4 F Pulse Rate Pulse Rate [Right Radial] 69 85 73 Respiratory Rate 18 18 19 Blood Pressure Blood Pressure [Right Arm] 127/58 134/60 128/67 O2 Sat by Pulse Oximetry 96 97 94 L 05/07/20 20:15 05/08/20 00:00 05/08/20 04:00 Temperature 97.9 F 98.2 F Pulse Rate 93 H Pulse Rate [Right Radial] 61 57 L Respiratory Rate 20 20 Blood Pressure Blood Pressure [Right Arm] 125/67 125/58 O2 Sat by Pulse Oximetry 98 98 98 05/08/20 08:00 05/08/20 08:20 Temperature 97.9 F Pulse Rate 104 H Pulse Rate [Right Radial] 85 Respiratory Rate 20 Blood Pressure Blood Pressure [Right Arm] 140/63 O2 Sat by Pulse Oximetry 96 96 Labs: Laboratory Last Values WBC 5.4 X10^3/uL (3.6-10.0) 05/08/20 05:34 RBC 3.29 X10^6/uL (3.5-5.4) L 05/08/20 05:34 Hgb 8.2 g/dL (12.0-16.0) L 05/08/20 05:34 Hct 25.6 % (36.0-47.0) L 05/08/20 05:34 MCV 77.9 fL (80.0-100.0) L 05/08/20 05:34 MCH 25.0 pg (27.0-34.0) L 05/08/20 05:34 MCHC 32.1 g/dL (33.0-35.0) L 05/08/20 05:34 RDW 19.7 % (11.6-16.5) H 05/08/20 05:34 Plt Count 252 X10^3/uL (150.0-450.0) 05/08/20 05:34 Plt Count Comment Adequate (ADEQUATE) 05/08/20 05:34 MPV 6.5 fL (7.4-11.0) L 05/08/20 05:34 Neut % (Auto) 73.2 % (42.0-75.0) 05/08/20 05:34 Lymph % (Auto) 19.6 % (21.0-51.0) L 05/08/20 05:34 [place] % (Auto) 7.0 % (0.0-13.0) 05/08/20 05:34 Eos % (Auto) 0.1 % (0.9-2.9) L 05/08/20 05:34 Baso % (Auto) 0.1 % (0.2-1.0) L 05/08/20 05:34 Neut # (Auto) 4.0 x10^3/uL (2.2-4.8) 05/08/20 05:34 Lymph # (Auto) 1.1 X10^3/uL (1.3-2.9) L 05/08/20 05:34 [place] # (Auto) 0.4 x10^3/uL (0.3-0.8) 05/08/20 05:34 Eos # (Auto) 0.0 x10^3/uL (0.0-0.2) 05/08/20 05:34 Baso # (Auto) 0.0 X10^3/uL (0.0-0.1) 05/08/20 05:34 Absolute Nucleated RBC 0.1 /100WBC 05/08/20 05:34 Plt Morphology Comment Normal (NORMAL) 05/08/20 05:34 RBC Morphology Abnormal (NORMAL) A 05/08/20 05:34 Hypochromasia Slight A 05/08/20 05:34 Anisocytosis Slight A 05/07/20 05:28 Microcytosis Slight A 05/07/20 05:28 PT 13.3 SECONDS (11.8-14.3) 05/05/20 21:35 INR Target Range - 05/05/20 21:35 INR 1.04 (0.8-1.3) 05/05/20 21:35 APTT 32.0 SECONDS (22.9-36.5) 05/05/20 21:35 PTT Comment - 05/05/20 21:35 D-Dimer 2880 ng/mL (0-400) H* 05/05/20 21:45 Sodium 140 mmol/L (136-145) 05/08/20 05:34 Corrected Sodium 141 mmol/L (136-145) 05/08/20 05:34 Potassium 4.0 mmol/L (3.5-5.1) 05/08/20 05:34 Chloride 103 mmol/L (98-107) 05/08/20 05:34 Carbon Dioxide 35.5 mmol/L (21-32) H 05/08/20 05:34 BUN 15 mg/dL (7-18) 05/08/20 05:34 Creatinine 0.68 mg/dL (0.55-1.02) 05/08/20 05:34 Est GFR (MDRD) Af Amer > 60 (>60) 05/08/20 05:34 Est GFR (MDRD) Non-Af > 60 (>60) 05/08/20 05:34 Glucose 125 mg/dL (65-99) H 05/08/20 05:34 POC Glucose (mg/dL) 264 mg/dL (65-99) H 05/07/20 21:14 Calcium 7.9 mg/dL (8.5-10.1) L 05/08/20 05:34 Corrected Calcium 8.9 mg/dL (8.5-10.1) 05/05/20 21:45 Magnesium 2.4 mg/dL (1.7-2.9) 05/07/20 05:28 Iron 19 ug/dL (50-175) L 05/06/20 05:35 Transferrin 161 mg/dL (202-364) L 05/06/20 05:35 Ferritin 79 ng/mL (8-252) 05/06/20 05:35 Total Bilirubin 0.70 mg/dL (0.2-1.0) 05/05/20 21:45 AST 19 Units/L (15-37) 05/05/20 21:45 ALT 15 Units/L (12-78) 05/05/20 21:45 Alkaline Phosphatase 57 Units/L (46-116) 05/05/20 21:45 Creatine Kinase 28 Units/L (26-192) 05/05/20 21:45 CK-MB (CK-2) < 1.0 ng/mL (0-4.0) 05/05/20 21:45 CK/CKMB % Calc 3.6 % (<4) 05/05/20 21:45 Troponin I < 0.02 ng/mL (0-1.5) 05/05/20 21:45 B-Natriuretic Peptide 25.2 pg/mL (0-79) 05/05/20 21:45 Total Protein 7.3 g/dL (6.4-8.2) 05/05/20 21:45 Albumin 2.6 g/dL (3.4-5.0) L 05/05/20 21:45 Globulin 4.7 g/dL (2.5-4.5) H 05/05/20 21:45 Albumin/Globulin Ratio 0.6 Ratio (1.1-2.1) L 05/05/20 21:45 Vitamin B12 914 pg/mL (193-986) 05/06/20 05:35 Folate 6.0 ng/mL (>8.6) L 05/06/20 05:35 Specimen Type Clean catch urine 05/06/20 06:20 Urine Color Dark yellow (YELLOW) 05/06/20 06:20 Urine Appearance Clear (CLEAR) 05/06/20 06:20 Urine pH 6.0 (5.0 - 8.0) 05/06/20 06:20 Ur Specific [place] 1.010 (1.000-1.030) 05/06/20 06:20 Urine Protein 2+ (NEGATIVE) 05/06/20 06:20 Urine Glucose (UA) Negative (NEGATIVE) 05/06/20 06:20 Urine Ketones Negative (NEGATIVE) 05/06/20 06:20 Urine Occult Blood 1+ (NEGATIVE) 05/06/20 06:20 Urine Nitrite Negative (NEGATIVE) 05/06/20 06:20 Urine Bilirubin Negative (NEGATIVE) 05/06/20 06:20 Urine Urobilinogen 2+ (NORMAL) 05/06/20 06:20 Ur Leukocyte Esterase 1+ (NEGATIVE) 05/06/20 06:20 Urine RBC 3-5 /HPF (0-3) A 05/06/20 06:20 Urine WBC 5-10 /HPF (0-5) A 05/06/20 06:20 Ur Squamous Epith Cells Few /HPF (NEGATIVE) 05/06/20 06:20 Urine Bacteria Trace /HPF (NEGATIVE) 05/06/20 06:20 Ur Culture Indicated? No/not indicated 05/06/20 06:20 SARS-CoV-2 (PCR) Negative (NEGATIVE) 05/05/20 23:15 Reason For Visit: COPD EXERBATION; HYPOXEMIA; HYPONATREMIA; Discharge Date Discharge Date: 05/08/20 Discharge Diagnosis All Active Problems (Updated 05/08/20 @ 13:21 by Leona Whyte) COPD with acute exacerbation (Acute) Hypoxemia (Acute) Hyperglycemia (Acute) Microcytic anemia (Acute) HTN (hypertension) (Acute) Hilar lymphadenopathy (Acute) Anemia (Acute) Diabetes (Acute) CAD (coronary artery disease) (Acute) Plan of Treatment: Continue with present treatment and follow up plan. Pt is to keep follow up appointment as instructed and take medications as ordered. Discharge Medications Discharge Medications: ceftriaxone [From Rocephin] Allergy (Verified 05/06/20 00:29) hydromorphone [From Dilaudid] Allergy (Verified 05/05/20 20:46) theophylline Allergy (Verified 05/06/20 00:29) CONTINUE taking the following medications albuterol sulfate [ProAir HFA] 2 puff INHALATION Q6H PRN 05/05/20 [History] atorvastatin 40 mg PO DAILY 05/05/20 [History] furosemide [Lasix] 40 mg PO QAM 05/05/20 [History] glipizide 5 mg PO BID 05/05/20 [History] hydralazine 50 mg PO BID 05/05/20 [History] isosorbide dinitrate 10 mg PO BID 05/05/20 [History] lisinopril 40 mg PO BID 05/05/20 [History] metoprolol tartrate 50 mg PO BID 05/05/20 [History] pantoprazole 40 mg PO QAM 05/05/20 [History] New Prescriptions azithromycin 250 mg PO DAILY 3 Days #3 tab 05/08/20 [Rx] prednisone 40 mg PO DAILY 3 Days #3 tab 05/08/20 [Rx] Follow up and Referral Follow Up: 1 Week (PCP) Discharge Disposition Discharge Disposition: HomeS Discharge Condition: Stable
[2020-05-08 12:51] VITALS: BP 131/60
== END 2020-05-08 13:10 | disposition home or self-care (01) | DRG 191 ==
LOC: ER 20:26 → MED/SURG 23:20
PROVIDERS: ADMIT Internal Medicine; ATTEND Internal Medicine
DX: I10 Essential (primary) hypertension; J44.1 Chronic obstructive pulmonary disease with (acute) exacerbation; I25.10 Atherosclerotic heart disease of native coronary artery without angina pectoris; D50.8 Other iron deficiency anemias; R59.0 Localized enlarged lymph nodes; Z11.59 Encounter for screening for other viral diseases; E87.1 Hypo-osmolality and hyponatremia; E11.65 Type 2 diabetes mellitus with hyperglycemia; R06.02 Shortness of breath; R09.02 Hypoxemia; Z99.81 Dependence on supplemental oxygen
CPT/HCPCS: 36415; 71010; 71045; 71275; 80048; 80053; 81001; 82550; 82553; 82607; 82728; 82746; 83540; 83735; 83880; 84466; 84484; 85025; 85378; 85610; 85730; 87040; 87086; 87635; 93005; 94640; 94760; 96365; 96367; 96374; 96375; 97166; 99284; A4216; A4222; J1815; J1956; J2930; J3475; J7512; J7620; J7626